=== PATIENT | male | born 1965 | race Caucasian/White ===

== ENCOUNTER 2016-12-29 07:05 | Observation (INO) | payer BC, MEDICARE ==
[2016-12-29 08:25] LABS: APPEARANCE,URINE CLEAR; BILIRUBIN,URINE NEGATIVE (NEGATIVE); GLUCOSE, URINE NEGATIVE (NEGATIVE); KETONES,URINE 20 mg/dL (NEGATIVE); LEUKOCYTE ESTERASE,URINE NEGATIVE (NEGATIVE); NITRITE,URINE NEGATIVE (NEGATIVE); PROTEIN,URINE NEGATIVE (NEGATIVE); URINE SPECIFIC GRAVITY 1.023; UROBILINOGEN,URINE NEGATIVE mg/dL (<2.0)
[2016-12-29 08:36] LABS: ABSOLUTE BASOPHILS # (AUTO) 0.1 10^3/uL (0.0-0.2); ABSOLUTE LYMPHOCYTES (AUTO) 1.8 10^3/uL (0.5-4.7); ABSOLUTE NEUT (AUTO) 14.8 10^3/uL (1.7-8.2); BASOPHILS % (AUTO) 0.4 % (0-2); EOSINOPHILS % (AUTO) 0.2 % (0-6); HEMATOCRIT 42.3 % (37.9-51.0); HEMOGLOBIN 14.6 g/dL (13.5-17.0); HGB HCT DIFFERENCE 1.5; LYMPHOCYTES % (AUTO) 9.5 % (13-45); MEAN CORPUSCULAR HEMOGLOBIN 29.1 pg (27.0-33.4); MEAN CORPUSCULAR HGB CONC 34.5 g/dL (32.0-36.0); MEAN CORPUSCULAR VOLUME 84 fl (80-97); MONOCYTES % (AUTO) 10.5 % (3-13); RED BLOOD COUNT 5.01 10^6/uL (4.35-5.55); RED CELL DISTRIBUTION WIDTH 13.6 % (11.5-14.0); SEGMENTED NEUTROPHILS % (AUTO) 79.4 % (42-78); WHITE BLOOD COUNT 18.6 10^3/uL (4.0-10.5)
[2016-12-29] MEDS ORDERED: NEOSTIGMINE METHYLSULFATE 10 MG/10 ML VIAL ONE (08:37)
[2016-12-29] MEDS ORDERED: ROCURONIUM BROMIDE INJ 50 MG/5 ML VIAL IV ONE (08:37)
[2016-12-29] MEDS ORDERED: GLYCOPYRROLATE INJ 0.4 MG/2 ML VIAL ONE (08:37)
[2016-12-29] MEDS ORDERED: LIDOCAINE 2% INJ-PF (20 MG/ML) 10 ML AMPUL ONE ×2 (08:37→12:55)
[2016-12-29] MEDS ORDERED: SUCCINYLCHOLINE CHLORIDE INJ 200 MG/10 ML VIAL ONE (08:37)
[2016-12-29] MEDS ORDERED: ONDANSETRON HCL INJ/PF 4 MG/2 ML SDV ONE (08:37)
[2016-12-29] MEDS ORDERED: DEXAMETHASONE SOD PHOSPHATE INJ 4 MG/1 ML VIAL ONE (08:37)
[2016-12-29] MEDS ORDERED: METOCLOPRAMIDE HCL INJ/PF 10 MG/2 ML SDV ONE (08:37)
[2016-12-29 08:56] LABS: ALANINE AMINOTRANSFERASE 25 U/L (21-72); ALBUMIN 4.5 g/dL (3.5-5.0); ALKALINE PHOSPHATASE 79 U/L (38-126); ANION GAP 13 (5-19); ASPARTATE AMINO TRANSFERASE 21 U/L (17-59); BILIRUBIN,DIRECT 0.2 mg/dL (0.0-0.4); BILIRUBIN,TOTAL 0.8 mg/dL (0.2-1.3); BLOOD UREA NITROGEN 13 mg/dL (7-20); CALCIUM 9.8 mg/dL (8.4-10.2); CARBON DIOXIDE 27 mmol/L (22-30); CHLORIDE 102 mmol/L (98-107); CREATININE RESULT 0.69 mg/dL (0.52-1.25); GLUCOSE 108 mg/dL (75-110); LIPASE 25.9 U/L (23-300); POTASSIUM 4.1 mmol/L (3.6-5.0); SODIUM 142.1 mmol/L (137-145); TOTAL PROTEIN 7.7 g/dL (6.3-8.2)
--- NOTE | 2016-12-29 09:07 | ER Document Report ---
ED GI/ - General Mode of Arrival: Ambulatory Information source: Patient TRAVEL OUTSIDE OF THE [place] IN LAST 30 DAYS: No - HPI Patient complains to provider of: Abdominal pain - Right lower quadrant Onset: Yesterday Timing/Duration: Gradual, Worse Location: RLQ Associated symptoms: Nausea. denies: Diarrhea, Vomiting <IRIS FARIAS - Last Filed: 12/29/16 09:13> <LESTER BENSON - Last Filed: 12/29/16 12:52> - General Chief Complaint: Lower Abdominal Pain Stated Complaint: ABDOMINAL PAIN Notes: Patient is a 51-year-old male presenting to the emergency department chief complaint right lower quadrant abdominal pain onset yesterday morning. Patient admits to decreased appetite and nausea, but denies any vomiting or diarrhea. Patient states that his last bowel movement was a couple days ago. Patient denies much increase in pain when he walks. Patient has no other complaints at this time. (IRIS FARIAS) - Related Data Allergies/Adverse Reactions: No Known Allergies Allergy (Verified 12/29/16 08:05) Home Medications: Current Home Medications Hydrocodone/Acetaminophen [[place] 10-325 mg Tablet] 1 tab PO TID PRN 12/29/16 [ History] Naproxen 500 mg PO BID 12/29/16 [History] Past Medical History - General Information source: Patient - Social History Smoking Status: Former Smoker - Quit November 2016 Chew tobacco use (# tins/day): No Frequency of alcohol use: None Drug Abuse: None Lives with: Spouse/Significant other Family History: Reviewed & Not Pertinent Patient has suicidal ideation: No Patient has homicidal ideation: No Renal/ Medical History: Denies: Hx Peritoneal Dialysis Musculoskeltal Medical History: Reports Hx Arthritis Traumatic Medical History: Reports: Hx Fractures - Back and ribs Surgical Hx: Negative - Immunizations Hx Diphtheria, Pertussis, Tetanus Vaccination: No <IRIS FARIAS - Last Filed: 12/29/16 09:13> Review of Systems - Review of Systems Constitutional: No symptoms reported EENT: No symptoms reported Cardiovascular: No symptoms reported Respiratory: No symptoms reported Gastrointestinal: See HPI, Nausea, Poor appetite, Last bowel movement - 2 Days Ago. denies: Diarrhea, Vomiting Genitourinary: No symptoms reported Male Genitourinary: No symptoms reported Musculoskeletal: No symptoms reported Skin: No symptoms reported Hematologic/Lymphatic: No symptoms reported Neurological/Psychological: No symptoms reported -: Yes All other systems reviewed and negative <IRIS FARIAS - Last Filed: 12/29/16 09:13> Physical Exam - Vital signs Interpretation: Normal - General General appearance: Alert - HEENT Head: Normocephalic, Atraumatic Eyes: Normal Pupils: PERRL - Respiratory Respiratory status: No respiratory distress Breath sounds: Normal - Cardiovascular Rhythm: Regular Heart sounds: Normal auscultation - Abdominal Bowel sounds: Hypoactive Tenderness: Tender - RLQ tenderness to direct palpation. Referred pain on LLQ palpation., Rebound - Referred rebound tenderness. - Back Back: Normal, Nontender - Extremities General upper extremity: Normal inspection, Nontender General lower extremity: Normal inspection, Nontender - Neurological Neuro grossly intact: Yes Cognition: Normal [place] Coma Scale Eye Opening: Spontaneous [place] Coma Scale Verbal: Oriented [place] Coma Scale Motor: Obeys Commands [place] Coma Scale Total: 15 - Psychological Associated symptoms: Normal affect, Normal mood - Skin Skin Temperature: Warm Skin Moisture: Dry Skin Color: Normal <IRIS FARIAS - Last Filed: 12/29/16 09:13> Course - Laboratory Result Diagrams: 12/29/16 08:15 12/29/16 08:15 <IRIS FARIAS - Last Filed: 12/29/16 09:13> - Laboratory Result Diagrams: 12/29/16 08:15 12/29/16 08:15 - Diagnostic Test Radiology reviewed: Image reviewed, Reports reviewed - Acute abdominal series does not show any free air or other abnormality - EKG Interpretation by Ar EKG shows normal: Sinus rhythm, [place], Intervals, QRS Complexes, ST-T Waves Rate: Normal - 87 Rhythm: NSR <LESTER BENSON - Last Filed: 12/29/16 12:52> - Vital Signs Vital signs: Temp Pulse Resp BP Pulse Ox 98.3 F 84 16 115/71 96 12/29/16 10:25 12/29/16 10:25 12/29/16 10:25 12/29/16 10:25 12/29/16 10:25 - Laboratory Laboratory results interpreted by ks: 12/29/16 12/29/16 08:05 08:15 WBC 18.6 H Seg Neutrophils % 79.4 H Lymphocytes % 9.5 L Absolute Neutrophils 14.8 H Absolute Monocytes 2.0 H Urine Ketones 20 H Discharge <IRIS FARIAS - Last Filed: 12/29/16 09:13> - Discharge Admitting Provider: Surgicalist Unit Admitted: OR <LESTER BENSON - Last Filed: 12/29/16 12:52> - Discharge Clinical Impression: Appendicitis Qualifiers: Appendicitis type: acute appendicitis Acute appendicitis type: with localized peritonitis Qualified Code(s): K35.3 - Acute appendicitis with localized peritonitis Condition: Stable Disposition: ADMITTED INPATIENT Scribe Attestation: 12/29/16 12:52 I personally performed the services described in the documentation, reviewed and edited the documentation which was dictated to the scribe in my presence, and it accurately records my words and actions. (LESTER BENSON) Scribe Documentation - Scribe Written by Scribe:: Iris Farias 12/29/2016 [id number] acting as scribe for :: Rod <IRIS FARIAS - Last Filed: 12/29/16 09:13>
[2016-12-29] MEDS ORDERED: PIPERACILLIN/TAZOBACTAM 3.375 GM VIAL IV ONE (09:08)
[2016-12-29] MEDS ORDERED: NORMAL SALINE 1000 ML 1,000 ML IV ONE (09:08)
[2016-12-29] MEDS ORDERED: ONDANSETRON HCL INJ/PF 4 MG/2 ML SDV IV ONE (09:19)
[2016-12-29] MEDS ORDERED: MORPHINE SULFATE 10 MG/ML INJ IV ONE (09:19)
--- NOTE | 2016-12-29 12:49 | EKG REPORT ---
SEVERITY:- NORMAL ECG - SINUS RHYTHM : Confirmed by: Brigette Wick MD 29-Dec-2016 12:49:22
[2016-12-29] MEDS ORDERED: MIDAZOLAM 2 MG/2 ML INJ ONE (12:55)
[2016-12-29] MEDS ORDERED: HYDROMORPHONE HCL INJ/PF 2 MG/ML AMPULE ONE (12:55)
[2016-12-29] MEDS ORDERED: EPHEDRINE SULFATE INJ 50 MG/1 ML AMPULE ONE (12:55)
[2016-12-29] MEDS ORDERED: ACETAMINOPHEN 100 ML IV ONE (12:56)
[2016-12-29] MEDS ORDERED: IBUPROFEN INJ 800 MG/8 ML VIAL IV ONE (12:56)
[2016-12-29] MEDS ORDERED: PROPOFOL INJ 200 MG/20 ML VIAL IV ONE (12:56)
[2016-12-29] MEDS ORDERED: BUPIVACAINE HCL 0.25 % INJ/PF (2.5 MG/1 ML) 30 ML VIAL ONE (12:59)
--- NOTE | 2016-12-29 13:44 | PDOC H&P ---
History of Present Illness Admission Date/PCP: 12/29/16 13:12 History of Present Illness: PIPO CHENG is a 51 year old male resistant MRSA from approximately 2 days history of abdominal pain, anorexia, some nausea but no vomiting, normal bowel movements up until today. Last meal last night. Pain is localized right lower quadrant. He denies history of trauma or previous episodes. He was seen in the emergency department by Dr. Joel Vick and was felt to have appendicitis based on clinical examination. Surgery was consulted, patient was examined, felt to warrant admission and interval for laparoscopic exploration , probable appendectomy Past Medical History Musculoskeltal Medical History: Reports: Arthritis Social History Lives with: Spouse/Significant other Smoking Status: Former Smoker - Quit November 2016 Family History Family History: Reviewed & Not Pertinent Parental Family History Reviewed: Yes Children Family History Reviewed: Yes Sibling(s) Family History Reviewed.: Yes Medication/Allergy Home Medications: Hydrocodone/Acetaminophen [[place] 10-325 mg Tablet] 1 tab PO TID PRN 12/29/16 Naproxen 500 mg PO BID 12/29/16 Allergies/Adverse Reactions: No Known Allergies Allergy (Verified 12/29/16 08:05) Physical Exam Vital Signs: Temp Pulse Resp BP Pulse Ox 98.3 F 84 16 115/71 96 12/29/16 10:25 12/29/16 10:25 12/29/16 10:25 12/29/16 10:25 12/29/16 10:25 General appearance: PRESENT: no acute distress Head exam: PRESENT: normocephalic Eye exam: PRESENT: EOMI Ear exam: PRESENT: normal external ear exam Mouth exam: PRESENT: moist Respiratory exam: PRESENT: clear to auscultation [place] Cardiovascular exam: PRESENT: RRR Pulses: PRESENT: normal radial pulses, normal femoral pulses Musculoskeletal exam: PRESENT: full ROM Focused psych exam: PRESENT: flight of ideas Results Impressions: Acute Abdomen Series 12/29/16 09:15 IMPRESSION: NO RADIOGRAPHIC EVIDENCE FOR ACUTE ABDOMINAL DISEASE. Status: Imported from PACS Assessment & Plan - Diagnosis (1) Acute abdomen Is this a current diagnosis for this admission?: YesPlan: Patient's clinical history, physical exam findings and laboratory profile are all consistent with acute appendicitis. I suggested we proceed with interval appendectomy, laparoscopic possible open. I have explained the exit the operation, as well as a thorough explanation of his benefits alternatives. I believe he understands agrees to proceed. (2) Appendicitis Qualifiers: Appendicitis type: acute appendicitis Acute appendicitis type: with localized peritonitis Qualified Code(s): K35.3 - Acute appendicitis with localized peritonitis - Time Time Spent: 30 to 50 Minutes Critical Time spent with patient: 15-24 minutes
[2016-12-29] MEDS ORDERED: DIPHENHYDRAMINE HCL 50 MG/ML VIAL IV PRN (14:03)
[2016-12-29] MEDS ORDERED: ONDANSETRON HCL INJ/PF 4 MG/2 ML SDV IV PRN (14:03)
[2016-12-29] MEDS ORDERED: OXYCODONE-ACETAMINOPHEN 5-325 MG TABLET PO PRN ×3 (14:03→14:24)
[2016-12-29] MEDS ORDERED: MEPERIDINE HCL/PF INJ 25 MG/1 ML DISP.SYRIN IV PRN (14:03)
[2016-12-29] MEDS ORDERED: FENTANYL CITRATE INJ/PF 100 MCG/2 ML AMPUL IV PRN ×3 (14:03)
[2016-12-29] MEDS ORDERED: PROMETHAZINE HCL INJ 25 MG/1 ML VIAL IV PRN ×2 (14:03)
[2016-12-29] MEDS ORDERED: MORPHINE SULFATE 10 MG/ML INJ IV PRN (14:03)
--- NOTE | 2016-12-29 14:32 | Operative Report ---
Operative Report DATE OF SURGERY: 12/29/16 PREOPERATIVE DIAGNOSIS: Acute appendicitis POSTOPERATIVE DIAGNOSIS: Same OPERATION: Laparoscopic appendectomy SURGEON: SUSU SHIELDS ANESTHESIA: GA TISSUE REMOVED OR ALTERED: One appendix COMPLICATIONS: None ESTIMATED BLOOD LOSS: scant INTRAOPERATIVE FINDINGS: See below PROCEDURE: The patient was taken to the preoperative holding area to the main operating room where general anesthesia was induced. He had was exposed, prepped and draped in sterile fashion. Surgical plan and surgical timeout. Skin above the umbilicus, in the suprapubic area in the left lower quadrant was anesthetized with 1% lidocaine without epinephrine. A supraumbilical incision with a knife, varies needle inserted and pneumoperitoneum established. There is needle was removed, 5 mm port was inserted a 5 mm scope was inserted. Under direct visualization a second 5 mm ports placed midline above the pubic area, 12 mm port was placed in the left lower quadrant lateral to the inferior epigastric vessels. The findings were Significant for acute appendicitis. The appendix was in its usual location but it was fixed to the cecal wall. Using a combination of blunt and suction dissection, we freed it from the anterior-inferior cecal wall. The mesial appendix was taken down with the LigaSure device and the appendix was clearly suspended only from its stalk. This was photographed, then amputated at its base with a single firing of the Ethicon 45 mm stapler . I placed it in an Endobag for the patient to the left lower quadrant port site. We leveled the patient check for BLEEDING AND THERE WAS NONE. SPONGE AND COUNTS WERE CORRECT ; ALL PORTS WERE REMOVED UNDER DIRECT VISUALIZATION AND PNEUMOPERITONEUM EVACUATED. Wounds closed 0 Vicryl, 3-0 Vicryl benzoin and Steri-Strips. Recent tolerated the procedure well, extubated and taken recovery in stable condition .
[2016-12-29 18:10] VITALS: BP 112/84
--- NOTE | 2016-12-29 21:08 | DISCHARGE SUMMARY E ---
Discharge Summary NAME: PIPO CHENG : 1965 AGE: 51Y ADMITTED: 12/29/2016 DISCHARGED: 12/29/2016 SUMMARY OF HOSPITALIZATION: The patient is a 51-year-old male who presented to the emergency department complaining of abdominal pain, anorexia, right lower quadrant tenderness. He was seen in the emergency department where he was found to have a leukocytosis. Surgery was consulted, and the patient was felt to have acute appendicitis. The patient was admitted to the surgicalist service, kept NPO, and taken to the operating room where he underwent laparoscopic appendectomy by Dr. Earl. He tolerated the procedure well. There were no post-procedure complications. He was started on a diet, this was tolerated well, and by the evening of the operating day he was felt to receive maximum benefit from the hospitalization and was discharged home. FINAL DIAGNOSIS: Acute appendicitis, status post laparoscopic appendectomy. DISPOSITION: The patient will be discharged to home to the care of his family with followup with Dr. Earl in approximately in 1 to 2 weeks, take Tylenol or Motrin p.r.n. pain. DICTATING PHYSICIAN: SUSU EARL M.D. [id number] PHY#: [id number] ID: [id number] JOB#: [id number] ACCT: [id number] cc:Omid TRIMBLE M.D. >
== END 2016-12-29 22:00 | disposition home or self-care (01) ==
LOC: ER 07:05 → UNDOADMIN 13:12 → EH 13:12 → OBSVTOIN 13:27 → INTOOBSV 13:27 → EH 13:27 → 4N 15:50
PROC: 3E0337Z Introduction of Electrolytic and Water Balance Substance into Peripheral Vein, Percutaneous Approach (ICD-10-PCS; 2016-12-29)
PROC: 3E033GC Introduction of Other Therapeutic Substance into Peripheral Vein, Percutaneous Approach (ICD-10-PCS; 2016-12-29)
PROC: 3E033GC Introduction of Other Therapeutic Substance into Peripheral Vein, Percutaneous Approach (ICD-10-PCS; 2016-12-29)
PROC: 0DTJ4ZZ Resection of Appendix, Percutaneous Endoscopic Approach (ICD-10-PCS; principal; 2016-12-29 14:00)
DX: K35.3 Acute appendicitis with localized peritonitis (principal); Z87.891 Personal history of nicotine dependence
CPT/HCPCS: 44970; 93005; 99285; 96361; 96375; 96365; 36415; 83690; 85025; 80053; 81001; 88304 ×2; 74022; 93010; J2250; J3490 ×2; J1100; J2765; J2270; J1170; J0330; J2405; J7030; J2704; J2543; J0131; J1741; 840